=== PATIENT | male | born 1970 | race Caucasian/White ===

== ENCOUNTER 2016-09-18 00:34 | Inpatient (IN) | payer OTHER ==
--- NOTE | 2016-09-18 01:01 | PROVIDER DOCUMENTATION ---
HPI-Male Problem - General Chief Complaint: Back Pain Stated Complaint: BACK PAIN, CHILLS, FEVER, CANNOT STOP URINATING Time Seen by Provider: 09/18/16 00:43 Source: patient Allergies/Adverse Reactions: Patient Allergies Allergy/AdvReac Type Severity Reaction Status Date / Time No Known Allergies Allergy Verified 09/18/16 00:45 Home Medications: Home Medication List Medication Instructions Recorded Confirmed Last Taken Type No Home Medications 09/18/16 09/18/16 Unknown History
[2016-09-18] MEDS ORDERED: MORPHINE IV ONE (01:02)
[2016-09-18] MEDS ORDERED: NS 1,000 ML IV ONE (01:02)
[2016-09-18] MEDS ORDERED: ROCEPHIN 1 GM/NS 50 ML IV ONE (01:02)
[2016-09-18 01:06] LABS: URINE MICRO REVIEW NEEDED? NO; URINE SOURCE CLEAN CATCH
--- NOTE | 2016-09-18 01:06 | PROVIDER DOCUMENTATION ---
Addendum entered and electronically signed by Bruno Sprague Scribe 09/18/16 02 :09: Additional Progress - ADDITIONAL XRAY's XRAY Study: Chest Impression: Normal Xray Interpretation: no pneumonia per Dr Mooney Original Note: HPI-Musculoskeletal Pain/Inj - GENERAL Source: patient - HX OF PRESENT ILLNESS-MUSKULOSKELTAL Quality of Pain: reports: aching, dull Severity in ED: moderate Onset/Duration: 4-6 hours ago Timing: still present, constant Modifying Factors: improves with: nothing Any recent injury?: No Locality of Occurance: Home Similar Symptoms Previously?: No Recently seen or treated by another doctor?: Yes - GENERAL Chief Complaint: Back Pain Stated Complaint: BACK PAIN, CHILLS, FEVER, CANNOT STOP URINATING Time Seen by Provider: 09/18/16 00:43 - HX OF PRESENT ILLNESS-MUSKULOSKELTAL Nature of Presenting Problem: Pt is a 46 y/o WM with low back pain that began at 4pm tonight while at his parents. Pt went home and states he was chilled never getting warm. States he slept on and off woke at 8pm with urgency to urinate but little was voided. Pt continued to have the urgency with little output. Pt checked his temp and was running a low fever. Pt states he was treated for Bronchitis 3 weeks ago and has finished his antibiotic and steroids. Pt states the cough and rough voice continue and the low back pain is dull constant, stays in one place, not moving at all. (Bruno Sprague) Review of Systems - Adult - REVIEW OF SYSTEMS - ADULT Constitutional: reports: chills, fever Eyes: reports: no symptoms reported Ears, Nose, Mouth & Throat: reports: no symptoms reported Cardiovascular: denies: chest pain, edema Respiratory: reports: cough. denies: shortness of breath, wheezing Gastrointestinal: denies: abdominal pain, constipation, diarrhea, nausea, vomiting Genitourinary: reports: dysuria, frequency, urgency. denies: flank pain, hematuria Musculoskeletal: reports: back pain (low back Right L5 area) Integumentary: reports: no symptoms reported Neurological: reports: no symptoms reported Psychiatric: reports: no symptoms reported Endocrine: reports: no symptoms reported Hematologic/Lymphatic: reports: no symptoms reported Allergic/Immunologic: reports: no symptoms reported All Other Systems: Reviewed and Negative Past History - Adult - PAST MEDICAL HISTORY-ADULT Review of Records: reports: Old Records Reviewed, Nursing Assessment Review, Medications Reviewed - FAMILY HISTORY Family History: reviewed, not pertinent - SOCIAL HISTORY Smoking: non-smoker Substance Use: none/never Living Situation: alone Occupation: Teacher Physical Exam-Injury Related - Physical Exam-Injury Related Initial Vital Signs Reviewed: Yes General Appearance: appears well, alert, no apparent distress Eyes: PERRL/EOMI, pink conjunctivae Head, Ears, Nose, Mouth & Throat: moist mucous membranes, normal ENT inspection , TMs normal, pharynx normal Neck: non-tender, full range of motion, supple, normal inspection Respiratory: lungs clear, normal breath sounds, no pleuratic chest pain, no respiratory distress, no accessory muscle use Cardiovascular: normal peripheral pulses, tachycardia Abdominal Exam: non tender, soft Back Exam: normal inspection, no CVA tenderness, no vertebral tenderness (No tenderness to palpation). negative: muscle spasm Extremity: normal range of motion, non-tender, normal gait, normal inspection Integumentary: normal color, warm/dry Neurologic: grossly normal, no motor/sensory deficits, abnormal cerebellar tests Psych/Mental Status: normal mood/affect, normal thought content, normal thought process, oriented x 3 Progress - CONSULTS/PCP/HOSPITALIST Notification #1 *Consult/PCP/Hospitalist*: Dr Montoya (hospitalist) Time Discussed: 02:07 Reason/Comments: admission Consult Disposition: Admit (accepts) - PLAN OF CARE/RESULTS Progress/Plan/Lab Results: 0115- Discussed patient with Dr. Mooney who will assume patient care, follow up on results and dispo patient. - ADM (Mary Jane Scott) Orders Category Date Time Status Finger Stick Blood Sugar (ED) DIRECTED Care 09/18/16 00:40 Active NPO Diet 09/18/16 00:40 Active CHEST-2 VIEWS [RAD] Stat Exams 09/18/16 01:04 Taken BLOOD CULTURE [BLDCUL] Stat Lab 09/18/16 01:04 Ordered CBC WITH ELECTRONIC DIFF [HEME] Stat Lab 09/18/16 00:49 Completed COMPREHENSIVE METABOLIC PANEL [CHEM] Stat Lab 09/18/16 00:49 Completed LACTATE, PLASMA [CHEM] Stat Lab 09/18/16 01:35 Completed URINALYSIS W/POSS RFLX CULT [URINALYSIS] Stat Lab 09/18/16 01:00 Completed URINE CULTURE [RM] Routine Lab 09/18/16 01:16 Received 0.9% Sodium Chloride Inj [Ns] 1,000 ml Med 09/18/16 01:02 Discontinued IV 999 mls/hr CefTRIAXONE 1 GM/NS [Rocephin 1 gm/Ns] 50 ml Med 09/18/16 01:02 Discontinued IV NOW Levofloxacin 750 mg/D5w [Levaquin 750 mg/D5w] 150 ml Med 09/18/16 01:57 Active IV NOW Morphine Med 09/18/16 01:02 Discontinued 4 mg IV NOW ONE Vital Signs Temp Pulse Resp BP Pulse Ox 09/18/16 00:39 99.8 F H 109 H 18 148/90 97 No Known Allergies Allergy (Verified 09/18/16 00:45) No Home Medications 09/18/16 Dietary Diet NPO Start ThuSep 18 004 Laboratory 09/18/16 09/18/16 09/18/16 01:35 01:00 00:49 WBC RBC Hgb Hct MCV MCH MCHC RDW Std Deviation Plt Count MPV Immature Gran % (Auto) Neut % (Auto) Lymph % (Auto) [place] % (Auto) Eos % (Auto) Baso % (Auto) Immature Gran # (Auto) Neut # (Auto) Lymph # (Auto) [place] # (Auto) Eos # (Auto) Baso # (Auto) Sodium 136 Potassium 4.3 Chloride 97 L Carbon Dioxide 24 L Anion Gap 15 BUN 12 Creatinine 1.2 Estimated GFR/1.73 m2 > 60 BUN/Creatinine Ratio 10 Glucose 160 H Calculated Osmolality 275 Calcium 9.7 Total Bilirubin 1.21 H AST 23 ALT 38 Alkaline Phosphatase 83 Total Protein 7.5 Albumin 4.5 Globulin 3.0 Albumin/Globulin Ratio 1.5 Plasma Lactate 1.3 Urine Source CLEAN CATCH Urine Color YELLOW Urine Turbidity CLEAR Urine pH 6.5 Ur Specific [place] 1.018 Urine Protein TRACE A Ur Glucose (Stick) NEGATIVE Ur Ketones (Stick) NEGATIVE Urine Blood NEGATIVE Urine Nitrite NEGATIVE Urine Bilirubin NEGATIVE Urobilinogen Dipstick NORMAL Urine Leukocytes MODERATE A Urine WBC (Auto) TNTC A Urine RBC (Auto) <10 U Epithel Cells (Auto) <10 Urine Bacteria (Auto) NEGATIVE 09/18/16 00:49 WBC 21.54 H RBC 5.02 Hgb 15.2 Hct 42.1 MCV 83.9 MCH 30.3 MCHC 36.1 RDW Std Deviation 13.1 Plt Count 305 MPV 9.4 Immature Gran % (Auto) 0.2 Neut % (Auto) 85.4 H Lymph % (Auto) 8.0 L [place] % (Auto) 6.2 Eos % (Auto) 0.1 Baso % (Auto) 0.1 Immature Gran # (Auto) 0.05 H Neut # (Auto) 18.39 H Lymph # (Auto) 1.72 [place] # (Auto) 1.33 H Eos # (Auto) 0.03 Baso # (Auto) 0.02 Sodium Potassium Chloride Carbon Dioxide Anion Gap BUN Creatinine Estimated GFR/1.73 m2 BUN/Creatinine Ratio Glucose Calculated Osmolality Calcium Total Bilirubin AST ALT Alkaline Phosphatase Total Protein Albumin Globulin Albumin/Globulin Ratio Plasma Lactate Urine Source Urine Color Urine Turbidity Urine pH Ur Specific [place] Urine Protein Ur Glucose (Stick) Ur Ketones (Stick) Urine Blood Urine Nitrite Urine Bilirubin Urobilinogen Dipstick Urine Leukocytes Urine WBC (Auto) Urine RBC (Auto) U Epithel Cells (Auto) Urine Bacteria (Auto) (Bruno Sprague) Departure - Departure Time of Disposition Order: 01:57 Certified Medical Emergency: Emergent - Departure DIAGNOSIS: Pyelonephritis Disposition: ADMITTED INPATIENT 09 Condition: Stable Referrals: Deion Montelongo MD [Primary Care Provider] - Attestation - Scribe Verification/Attestation Scribe:: Bruno Sprague Acting as Scribe for:: Mary Jane Scott Scribe documention review:: This chart was documented by a scribe and accurately reflects the service the provider performed and the decisions made by the provider. - Physician/ JAVON Attestation The physician spent face to face time with patient:: Yes Physician Attestation
[2016-09-18 01:09] LABS: BILIRUBIN URINE NEGATIVE (NEGATIVE); BLOOD URINE NEGATIVE (NEGATIVE); COLOR YELLOW; GLUCOSE URINE NEGATIVE (NEGATIVE); LEUKOCYTES URINE MODERATE (NEGATIVE); NITRITE URINE NEGATIVE (NEGATIVE); PH URINE 6.5; PROTEIN URINE TRACE mg/dL (NEGATIVE); SP GRAVITY URINE 1.018; TURBIDITY URINE CLEAR (CLEAR); UROBILINOGEN URINE NORMAL (NORMAL)
[2016-09-18 01:10] LABS: UR EPITHELIAL CELLS <10 /HPF (<10); URINE BACTERIA NEGATIVE /HPF; URINE CULTURE NEEDED? YES; URINE RBC <10 /HPF (<10); URINE WBC TNTC /HPF (<10)
[2016-09-18 01:22] LABS: BASO% 0.1 % (0.0-0.8); EOS# 0.03 X1000 (0.0-0.7); EOS% 0.1 % (0.0-10.0); HEMATOCRIT 42.1 % (42.0-52.0); HEMOGLOBIN 15.2 g/dL (14.0-18.0); IMM GRAN# 0.05 X1000 (0.0-0.04); IMM GRAN% 0.2 % (0.0-0.5); LYMPH# 1.72 X1000 (1.2-3.4); MANUAL DIFF NEEDED? NO; MCH 30.3 PG (27-31); MCHC 36.1 g/dL (33-37); MCV 83.9 FL (81-99); MONO# 1.33 X1000 (0.11-0.59); MONO% 6.2 % (1.7-9.3); MPV 9.4 FL (7.4-10.4); NEUT% 85.4 % (42.2-75.2); PLT 305 X1000 (130-400); RBC 5.02 XMIL (4.7-6.1)
[2016-09-18 01:26] LABS: AGAP 15; ALBUMIN 4.5 g/dL (3.5-5.0); ALKALINE PHOSPHATASE 83 U/L (32-122); BUN 12 mg/dL (8-22); CALCIUM 9.7 mg/dL (8.8-10.2); CHLORIDE 97 mmol/L (98-107); COSMO 275; GOT 23 U/L (10-34); GPT 38 U/L (10-44); POTASSIUM 4.3 mmol/L (3.5-5.1); SODIUM 136 mmol/L (136-145); TCO2 24 mmol/L (25-35); TOTAL BILIRUBIN 1.21 mg/dL (0.20-1.00); TOTAL PROTEIN 7.5 g/dL (6.3-8.3)
[2016-09-18] MEDS ORDERED: LEVAQUIN 750 MG/D5W 150 ML IV ONE (01:57)
[2016-09-18 03:40] LABS: HEMOGLOBIN A1C 5.2 % (4.8-6.0)
--- NOTE | 2016-09-18 03:47 | HISTORY AND PHYSICAL ---
PRIMARY CARE PROVIDER: Deion Montelongo MD CHIEF COMPLAINT: Low back pain, fever, chills, urgency to urinate. HISTORY OF PRESENT ILLNESS: This is a 46-year-old male who all only notes a history of bronchitis as a past medical history, who is a teacher at [email or web address]. He was at work today when he started having low back pain, mid low back pain over his vertebrae. He went home after work and went to bed. He then started having urinary urgency and frequency as if he felt like he had to urinate or he was "going to burst." When he would go to the bathroom, he would barely produced any urine. On arrival, laboratory data was obtained as well as a chest x-ray. A chest x-ray showed no acute disease. Laboratory data showed a white blood cell count of 21.54. Plasma lactate was normal. However, urine was leukocyte esterase positive with too numerous to count WBCs. A CT of his abdomen and pelvis with contrast is still pending to rule out kidney stone. However, it is unlikely as there was no blood noted in his urine. At any rate, he will be admitted inpatient for further evaluation and treatment at [facility]. PAST MEDICAL HISTORY: Bronchitis. PREVIOUS SURGICAL HISTORY: None. SOCIAL HISTORY: Lives in [place]. Lives alone in [place]. 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 Denies tobacco, alcohol or illicit drug use or abuse. FAMILY HISTORY: Mother and father are both at the bedside. Father has diabetes mellitus type 2, now insulin dependent and hypertension. Mother has diabetes mellitus type 2, is still on oral medication. ALLERGIES: No known drug allergies. HOME MEDICATIONS: No home medications. REVIEW OF SYSTEMS: Patient denied dizziness or headache. He denied rhinorrhea, a cough or sore throat. He was positive for fever and chills. Denied chest pain. Denied nausea, vomiting, diarrhea. Was positive for urinary urgency and frequency. Denied hematuria. Denies flank pain. Positive for lumbar back pain over the spinal column. Denies weakness. Other pertinent positives for admission are listed above in the HPI. He denied polydipsia and polyphagia. Other pertinent positives are listed above in the HPI. PHYSICAL EXAMINATION: VITAL SIGNS: Temperature 99.8 degrees, pulse 109, respirations 18, blood pressure 148/90, oxygen saturation 97% on room air. GENERAL: This is a mildly obese, very pleasant 46-year-old male in no acute distress lying in the ER stretcher. Alert and oriented x4. Answers all questions appropriately. Has a very attentive family. Mother and father are both at the bedside. HEENT: Head is atraumatic, normocephalic. Pupils equal, round, react to light. Extraocular eye movement intact. Sclerae is anicteric. Conjunctivae is pink. Oral mucosa is moist. NECK: Supple. No JVD. No thyromegaly. Trachea is midline. No cervical lymphadenopathy. CARDIAC: Regular rate and rhythm. S1-S2 appreciated. No murmurs, gallops, rubs. LUNGS: Clear to auscultation bilaterally. No rhonchi, wheezes or rales. ABDOMEN: Protuberant soft, nondistended, nontender. Bowel sounds present in all 4 quadrants. Normoactive. No pulsatile mass. No organomegaly. EXTREMITIES: No clubbing, cyanosis, or edema. MUSCULOSKELETAL: Range of motion in all 4 extremities within normal limits. 5/5 upper and lower extremity strength. NEUROLOGICAL: No focal or motor deficits noted. Alert and orient x4. Cranial nerves 2-12 appear to be grossly intact. DIAGNOSTIC DATA: Chest x-ray NAD. LABORATORY DATA: WBC 21.54, hemoglobin 15.2, hematocrit 42.1, platelet count 305,000. Sodium 136, potassium 4.3, chloride 97, carbon dioxide 24, BUN 12, creatinine 1.2, glucose 160, total bilirubin 1.21. Trace protein noted in the urine, moderate leukocytes, [id number]-count WBCs. No bacteria was noted. Nitrate negative. ASSESSMENT AND PLAN: 1. Questionable urinary tract infection with differentials of renal stone and prostatitis. Rocephin and Levaquin were given in the emergency room as well as morphine for pain control. We will get CT of abdomen and pelvis with contrast. We will continue Levaquin 750 IV q.24 hours as this would adequately treat urinary tract infection or prostatitis. CT is pending to rule out renal stone. 2. Leukocytosis secondary to #1. 3. Lumbar back pain again secondary to #1. We will give [place] 7.5 mg 1-2 IV q.6 at this time. We will re-evaluate after CT report is in. 4. Hyperglycemia. The patient does not carry a diagnosis of diabetes mellitus but is definitely at risk as both parents have diabetes mellitus type 2. We will order a hemoglobin A1. Additional orders. Blood cultures are pending as well as urine cultures. Zofran 4 mg IV q.4 hours as needed for nausea. Normal saline at 75 mL an hour. We will check TSH level. Further recommendations per patient clinical course. Dictated by JARROD Francois for Anderson Montoya MD
[2016-09-18] MEDS ORDERED: TYLENOL PO ONE (04:56)
[2016-09-18] MEDS ORDERED: ZOFRAN IV PRN (05:24)
[2016-09-18] MEDS: NS 1,000 ML IV SCH ×2 (05:39→20:35)
--- NOTE | 2016-09-18 07:55 | Diag Imaging Result Document ---
PROCEDURE NAME: ABDOMEN/PELVIS W/CONTRAST - 09/18/2016 CT ABDOMEN AND PELVIS WITH IV CONTRAST: COMPARISON: None available. FINDINGS: There is a small calcified granuloma at the right lung base. There is questionable mild hepatic steatosis. There are a couple of tiny cystic-appearing renal hypodensities on the right. The kidneys are grossly unremarkable, otherwise. There is no evidence of hydronephrosis. No ureteral stones are identified. The urinary bladder is unremarkable. There are incidental prostatic calcifications. The appendix is normal. There is a small fat-containing right inguinal hernia. There is no evidence of bowel obstruction. No focal inflammatory change, free abdominal gas, or free fluid is identified. The remainder of the solid viscera of the abdomen and pelvis and the remainder of the GI tract is essentially unremarkable. IMPRESSION: 1. Nothing to indicate pyelonephritis or acute obstructive uropathy. 2. Other incidental/nonacute findings detailed above but no definite acute pathology.
--- NOTE | 2016-09-18 08:17 | Diag Imaging Result Document ---
PROCEDURE NAME: CHEST-2 VIEWS - 09/18/2016 PA AND LATERAL RADIOGRAPH OF THE CHEST: COMPARISON: None available. FINDINGS: The lungs are grossly clear. There is no discrete pleural fluid collection or evidence of pneumothorax. The cardiomediastinal silhouette and upper airway are grossly unremarkable. IMPRESSION: No evidence of acute chest pathology.
[2016-09-18] MEDS: NORCO-7.5 PO PRN ×2 (08:50→16:28)
[2016-09-18] MEDS: FLOMAX PO SCH ×2 (10:46→20:36)
[2016-09-19] MEDS: TYLENOL PO PRN (00:59)
[2016-09-19] MEDS ORDERED: LEVAQUIN 750 MG/D5W 150 ML IV SCH ×2 (01:00→08:33)
[2016-09-19 06:28] LABS: HEMATOCRIT 35.3 % (42.0-52.0); HEMOGLOBIN 12.5 g/dL (14.0-18.0); MCH 30.1 PG (27-31); MCHC 35.4 g/dL (33-37); MCV 85.1 FL (81-99); MPV 9.2 FL (7.4-10.4); RBC 4.15 XMIL (4.7-6.1)
[2016-09-19 06:36] LABS: AGAP 9; ALBUMIN 3.7 g/dL (3.5-5.0); ALKALINE PHOSPHATASE 79 U/L (32-122); BUN 8 mg/dL (8-22); CALCIUM 8.8 mg/dL (8.8-10.2); CHLORIDE 101 mmol/L (98-107); COSMO 268; GOT 21 U/L (10-34); GPT 33 U/L (10-44); POTASSIUM 3.8 mmol/L (3.5-5.1); SODIUM 134 mmol/L (136-145); TCO2 24 mmol/L (25-35); TOTAL PROTEIN 6.3 g/dL (6.3-8.3)
[2016-09-19] MEDS: FLOMAX PO SCH ×2 (08:23→21:27)
[2016-09-19] MEDS: NS 1,000 ML IV SCH (08:23)
[2016-09-19] MEDS: NORCO-7.5 PO PRN ×4 (08:28→21:25)
[2016-09-19] MEDS: MAXIPIME 2 GM/NS 100 ML IV SCH (21:27)
[2016-09-20] MEDS: TYLENOL PO PRN (00:06)
[2016-09-20] MEDS: NORCO-7.5 PO PRN ×3 (09:12→23:46)
[2016-09-20] MEDS: MAXIPIME 2 GM/NS 100 ML IV SCH ×2 (09:13→20:27)
[2016-09-20] MEDS: LEVAQUIN PO SCH (09:13)
[2016-09-20] MEDS: FLOMAX PO SCH ×2 (09:13→20:28)
--- NOTE | 2016-09-20 11:44 | PROGRESS NOTE ---
DATE: 09/19/2016 SUBJECTIVE: Patient notes he is feeling a little bit better. However he did have fever yesterday of 102. Positive nausea, occasional vomiting. Still having pain in his rectal areas. Denies any urinary complications. PHYSICAL: T current 100.0, pulse 90, respiratory 20, BP 156/82, T-max 102.6 degrees.General: Patient is a well-developed overweight male who currently is in no respiratory distress. He is pleasant. His speech is regular. Memory is intact. HEENT: Normocephalic. Neck: Supple. CV: Regular rate. Chest: Relatively clear. Abdomen: Soft, obese, nondistended. DIAGNOSTIC DATA: WBCs 14, hemoglobin and hematocrit 12 and 35. CMP otherwise normal with a bilirubin at 1.1. ASSESSMENT: 1. Acute prostatitis. 2. Leukocytosis, improving. 3. Febrile illness. 4. Sepsis secondary to his urinary tract infection. 5. Nausea, vomiting. PLAN: We will continue patient on antibiotics. We will consult Infectious Disease. Further orders as needed.
--- NOTE | 2016-09-20 11:55 | PROGRESS NOTE ---
DATE: 09/20/2016 SUBJECTIVE: The patient notes he still had a fever yesterday of 102. Denies any current chest pain, palpitations. Denies any nausea vomiting. States that his nausea does occur when his fever elevates, but otherwise he feels okay. Denies any urinary complications currently. OBJECTIVE: Vital Signs: On physical, temp 99, pulse 88, respiratory rate 18, BP 150/88 and T-max 102.7 degrees. General: Patient is a well developed, well nourished male, who is currently in no respiratory distress. He is pleasant to talk with. HEENT: Normocephalic. Neck: Supple. CV: Regular rate. Chest: Relatively clear. Abdomen: Soft. Extremities: Moves all extremities. Neurologic: No focal changes. Skin: Warm and dry. No rashes. LABS: Urine with E. coli sensitive to Bactrim, Zosyn, cefazolin and Levaquin. ASSESSMENT: 1. Escherichia coli urinary tract infection. 2. Escherichia coli sepsis. 3. Leukocytosis. 4. Nausea, vomiting. 5. Fever. PLAN: After consultation with infectious disease, the patient's medication was switched to cefepime. We will stay on cefepime until his fever is improved. We will also add p.o. Levaquin today and hopefully home in the next day or two.
[2016-09-21] MEDS: NORCO-7.5 PO PRN ×2 (06:38→12:53)
[2016-09-21 06:46] LABS: HEMATOCRIT 37.1 % (42.0-52.0); MCH 29.8 PG (27-31); MCV 85.1 FL (81-99); MPV 9.2 FL (7.4-10.4); RBC 4.36 XMIL (4.7-6.1)
[2016-09-21 07:11] LABS: AGAP 11; ALBUMIN 3.8 g/dL (3.5-5.0); ALKALINE PHOSPHATASE 101 U/L (32-122); BUN 9 mg/dL (8-22); CALCIUM 9.1 mg/dL (8.8-10.2); CHLORIDE 100 mmol/L (98-107); COSMO 270; GOT 47 U/L (10-34); GPT 78 U/L (10-44); POTASSIUM 4.1 mmol/L (3.5-5.1); SODIUM 135 mmol/L (136-145); TCO2 25 mmol/L (25-35); TOTAL PROTEIN 6.6 g/dL (6.3-8.3)
[2016-09-21 07:47] VITALS: BP 145/90
[2016-09-21] MEDS: FLOMAX PO SCH (09:01)
[2016-09-21] MEDS: LEVAQUIN PO SCH (09:01)
[2016-09-21] MEDS: MAXIPIME 2 GM/NS 100 ML IV SCH (09:01)
--- NOTE | 2016-09-22 06:22 | DISCHARGE SUMMARY ---
ADMISSION DATE: 09/18/2016 DISCHARGE DATE: 09/21/2016 DISCHARGE DIAGNOSES: 1. Acute prostatitis. 2. Escherichia Coli. 3. Urinary tract infection highly sensitive to Levaquin. 4. Febrile illness improved. 5. Nausea and vomiting resolved. 6. Abdominal pain stable and improved. 7. Obesity. 8. Others. CONSULTATIONS: Dr. Eldridge with Infectious Disease. PROCEDURES: None. BRIEF HOSPITAL COURSE: Patient is a 46-year-old male who was admitted as on the [facility] secondary to febrile illness, nausea and vomiting. He was felt to have an acute prostatitis and was placed on antibiotics. Unfortunately did not improve and continued to have fever. Dr. Eldridge was consulted. The patient was changed over to cefepime. He was changed from Levaquin IV Levaquin p.o. On discharge, he is awake, alert. He is feeling much better. He is having no new complaints and states that he feels ready for discharge. DISPOSITION: The patient will be discharged home. He will continue Levaquin daily for 3 weeks. Discussed with him he needs to take at a probiotic each day. Did send him home with pain medication in case he develops pain as he has been using this in the hospital. Also continue Flomax 0.4 twice a day for the next month as well. Discussed with patient the perils of caffeine, chocolate, cola, tea, antihistamines, decongestants etc. Patient will follow up in the office in 1-2 weeks for reevaluation.
== END 2016-09-21 16:58 | disposition home or self-care (01) | DRG 872 ==
LOC: ED 00:34 → P.MEDSURG 00:35
PROVIDERS: ADMIT Family Medicine; ATTEND Family Medicine
DX: A41.51 Sepsis due to Escherichia coli [E. coli] (principal); N39.0 Urinary tract infection, site not specified; N41.0 Acute prostatitis; E66.9 Obesity, unspecified; Z83.3 Family history of diabetes mellitus; Z82.49 Family history of ischemic heart disease and other diseases of the circulatory system; Z68.35 Body mass index [BMI] 35.0-35.9, adult; R73.9 Hyperglycemia, unspecified
CPT/HCPCS: 36415; 71020; 74177; 80053; 81001; 82948; 83036; 83605; 84443; 85025; 85027; 87040; 87077; 87088; 87186; 96365; 96366; 96367; 96375; J0692; J0696; J2270; J7030; Q9967